=== PATIENT | female | born 1990 | race Caucasian/White ===

== ENCOUNTER → 2021-07-21 | Outpatient (CLI) | payer OTHER ==
[~2021-07-21] MED LIST: NO HOME MEDICATIONS
== END ==
LOC: COL.RAD 09:25
DX: O26.833 Pregnancy related renal disease, third trimester (principal); R31.9 Hematuria, unspecified; Z3A.00 Weeks of gestation of pregnancy not specified

== ENCOUNTER → 2021-10-21 | Outpatient (CLI) | payer OTHER | LOC: COL.PUL 12:01 | DX: R06.01 Orthopnea (principal) ==

== ENCOUNTER 2021-11-20 04:15 | Outpatient (CLI) | payer OTHER ==
--- NOTE | 2021-11-20 04:25 | NUR ---
0425-Patient ambulates onto unit. Oriented to LDR5. Instructed to change into gown. Patient reports decreased movement for last couple hours, states she did try drinking water and juice. Patient denies LOB, VB, or regular ctx. Reports she is a bit "crampy", but is not sure if it is stomach related. EFMx2 explained and applied. VS obtained. Assessments attempted, meditech having technical issues. Patient reports CORDELIA of 03/14/22. She stated she is a , 23.5 weeks gestation. She is currently seen at by . Reports no current health issues. Non-smoker and denied any other substance use. Current on Covid vaccine, unknown for others. Reports lives w/ spouse. Plan of care discussed.
[2021-11-20] MEDS ORDERED: VITAMIN D31000 I1 PO (04:42)
[2021-11-20] MEDS ORDERED: PRENATAL TABLET PO (04:42)
[2021-11-20] MEDS ORDERED: ZOLOFT 25MG25 MG PO (04:43)
[2021-11-20 05:19] VITALS: BP 125/73; PULSE 98; TEMP 98
== END 2021-11-20 05:30 | disposition home or self-care (01) ==
LOC: LDRO 04:15
DX: O36.8190 Decreased fetal movements, unspecified trimester, not applicable or unspecified (principal); Z3A.00 Weeks of gestation of pregnancy not specified